=== PATIENT | male | born 1955 | race Caucasian/White ===

== ENCOUNTER → 2018-02-17 | Outpatient (CLI) | payer MEDICARE, OTHER | LOC: GMAE 11:37 | PROVIDERS: ATTEND Family Medicine | DX: Z11.59 Encounter for screening for other viral diseases (principal); I10 Essential (primary) hypertension ==

== ENCOUNTER 2020-06-05 16:57 | Emergency (ER) | payer MEDICARE, OTHER ==
[2020-06-05 17:36] VITALS: O2SAT 97
--- NOTE | 2020-06-05 17:42 | ED.PDOC ---
History of Present Illness - General Chief Complaint: Lower Extremity Injury Stated Complaint: left foot pain Time Seen by Provider: 06/05/20 17:41 Source: patient - History of Present Illness Initial Comments: 65-year-old male who presents with chief complaint of left foot pain following acute injury at home around 4 PM today. Patient reports that he was startled by his dog at home and jumped and landed awkwardly onto the outside of the left foot while wearing shoes. He is uncertain if he possibly rolled the ankle or not. He slowly fell to the ground and when he tried to stand up again he repor zeny new onset severe sharp pain to the bottom of the left foot along the outer aspect. Reports minimal pain at rest without weightbearing but becomes sharp and severe again with any weightbearing or walking. He has not taken any medication for relief. Denies any weakness, numbness, swelling, deformity. Allergies/Adverse Reactions: Allergies NO KNOWN ALLERGY Allergy (Verified 06/05/20 17:31) Home Medications: Ambulatory Orders Aspirin [Baby Aspirin] 81 mg PO QD 11/08/14 Etanercept [Enbrel] 50 mg SC WKLY 11/08/14 Folic Acid 1 mg PO DAILY@0700 11/08/14 Hydroxychloroquine [Plaquenil] 200 mg PO DAILY@0700 11/08/14 Methotrexate Sodium [Methotrexate] 2.5 mg PO WKLY 11/08/14 Telmisartan-Hydrochlorothiazid [Micardis Hct 40-12.5 mg] 1 tab PO DAILY@0700 11/08/14 Review of Systems - Review of Systems Review of Systems: 06/05/20 20:10 as per HPI All other Systems: Reviewed and Negative Past Medical History (General) - Patient Medical History Hx Asthma: Yes - as a child Hx of COPD: No Hx Congestive Heart Failure: No Hx Hypertension: Yes Hx Diabetes: No Hx Cancer: No Hx Hepatitis C: No - Vaccination History Hx Tetanus, Diphtheria Vaccination: No Hx Influenza Vaccination: Yes Hx Pneumococcal Vaccination: No Immunizations Up to Date: No - Social History Hx Tobacco Use: No Hx Alcohol Use: No Hx Substance Use: No Hx Substance Use Treatment: No Hx Depression: No Family Medical History - Family History Mother Living Status: Still Living Father Living Status: Cause of : stroke Physical Exam - Physical Exam General Appearance: Alert, Comfortable, No apparent distress, Obese Neck: full range of motion, supple, normal inspection Cardiovascular/Respiratory: regular rate, rhythm, no M/R/G, normal peripheral pulses, no JVD, normal breath sounds, no respiratory distress Gastrointestinal/Abdominal: non-tender Thigh/Hip: normal inspection Leg: normal inspection Knee: normal inspection Ankle: normal inspection, non-tender, no evidence of injury, normal ROM Foot: normal inspection, no evidence of injury, normal ROM, soft tissue tenderness - moderate to lateral aspect of proximal plantar foot Neuro/Tendon: normal sensation, normal motor functions, normal tendon functions Mental Status: alert, oriented x 3 Skin: normal color, warm/dry Progress - Progress Progress: 06/05/20 18:22 Acute left foot pain -Consider fracture, foot sprain/strain contusion, ankle sprain, heel fracture, metatarsal fracture, other -Obtain x-ray imaging of the left foot and ankle 06/05/20 20:23 -X-ray imaging of left foot and ankle reveals no acute processes or fractures per my read -Discussed findings with the patient. He reports his pain is well controlled with nonweightbearing and cold pack to the foot. Discussed diagnosis of left foot contusion as well as continued supportive care at home. -Discharged home in good condition, follow-up with PCP Andrew Hernandes MD Billing #[id number] Departure - Departure Clinical Impression: Contusion of left foot, initial encounter Time of Disposition: 20:07 Disposition: Discharge to Home or Self Care Condition: Good Departure Forms: ED Discharge - Pt. Copy, Patient Portal Self Enrollment Instructions: DI for Leg Pain, Contusion (DC) Diet: resume usual diet Activity: increase activity as tolerated, walking as tolerated Referrals: TIARA GUERRERO MD [Primary Care Provider] - 1-2 Weeks Home Medications: Ambulatory Orders Aspirin [Baby Aspirin] 81 mg PO QD 11/08/14 Etanercept [Enbrel] 50 mg SC WKLY 11/08/14 Folic Acid 1 mg PO DAILY@69911/08/14 Hydroxychloroquine [Plaquenil] 200 mg PO DAILY@69911/08/14 Methotrexate Sodium [Methotrexate] 2.5 mg PO WKLY 11/08/14 Telmisartan-Hydrochlorothiazid [Micardis Hct 40-12.5 mg] 1 tab PO DAILY@69911/08/14 Additional Instructions: Gradually return to weightbearing and walking as tolerated. Continue to keep the left foot elevated often and apply a cold pack frequently to the affected area to help limit pain and swelling. Continue take [id number] medications as needed for pain and inflammation such as ibuprofen 600 mg every 6 hours as needed and Tylenol 650 mg every 6 hours as needed. Follow-up with your primary care physician is recommended in the next 1 to 2 weeks for repeat evaluation or sooner as needed. You may contact your primary care physician for an outpatient physical therapy order which may accelerate your rehab.
--- NOTE | 2020-06-05 18:43 | RAD ---
EXAM: XR Left Foot Complete, 3 Views CLINICAL HISTORY: injury, L foot pain TECHNIQUE: Frontal, lateral and oblique views of the left foot. COMPARISON: No relevant prior studies available. FINDINGS: Bones/joints: There is mild spurring of the plantar calcaneus. There is moderate Achilles surface calcaneal spurring. No acute fracture. No dislocation. Soft tissues: No abnormality noted. No radiopaque foreign body. IMPRESSION: Chronic changes as above. No acute disease. Electronically signed by: Pamela Fregoso MD 06/05/2020 6:42 PM [facility]
--- NOTE | 2020-06-05 18:51 | RAD ---
EXAM: XR Left Ankle, 3 Views CLINICAL HISTORY: injury, L ankle pain TECHNIQUE: Frontal, lateral and oblique views of the left ankle. COMPARISON: No relevant prior studies available. FINDINGS: Limitations: None. Bones/joints: There is mild to moderate plantar and Achilles surface calcaneal spurring. Soft tissues: No abnormality noted. Vasculature: Atherosclerotic calcification noted. IMPRESSION: Chronic changes as above. No acute disease. Electronically signed by: Pamela Fregoso MD 06/05/2020 6:49 PM [facility]
[2020-06-05 20:24] VITALS: BP 146/87
[2020-06-05 20:26] VITALS: TEMP 97
== END 2020-06-05 20:30 | disposition home or self-care (01) ==
LOC: ER 16:57
DX: S90.32XA Contusion of left foot, initial encounter (principal); I10 Essential (primary) hypertension; X50.9XXA Other and unspecified overexertion or strenuous movements or postures, initial encounter; Z79.82 Long term (current) use of aspirin; Z79.899 Other long term (current) drug therapy; Y92.009 Unspecified place in unspecified non-institutional (private) residence as the place of occurrence of the external cause